=== PATIENT | female | born 1985 | race Two or more races ===

== ENCOUNTER 2025-01-25 14:52 | Emergency (ER) | payer MEDICAID, OTHER ==
[~2025-01-25] VITALS: Ht 162.6 cm; Wt 95.1 kg
--- NOTE | 2025-01-25 15:14 | ECG ---
[facility] Test Date: 2025-01-25 Test Time: 15:07:01 Pat Name: JULIAN BERMUDEZ Department[facility] Patient ID: [id number] Room: Gender: F Brilliandeer Looper: : 1985 Requested By: EVELYN BARNES Order Number: [id number] Reading MD: Terrell Villafuerte Measurements Intervals Maynard Rate: 87 P: 15 VA: 110 QRS: 40 QRSD: 106 T: 26 QT: 377 QTc: 454 Interpretive Statements Sinus rhythm Borderline short VA interval Low voltage, precordial leads Borderline T abnormalities, anterior leads Electronically Signed On 01-27-2025 15:02:52 PST by Terrell Villafuerte Please click the below link to view image of tracing.
[2025-01-25 16:40] LABS: Hematocrit 39.5 % (36.0-46.0); Hemoglobin 13.2 g/dL (12.2-16.2); Mean Corpuscular Hemoglobin 29.2 pg (28.0-32.0); Mean Corpuscular Volume 87.2 fL (80.0-100.0); Nucleated Red Blood Cells % 0.2 %
[2025-01-25] MEDS: SODIUM CHLORIDE 0.9% 1,000 ML IV ONE (16:46)
[2025-01-25 16:47] LABS: Chloride 105 mmol/L (98-107); Potassium 3.9 mmol/L (3.5-5.1); Sodium 141 mmol/L (136-145)
[2025-01-25 16:48] LABS: Anion Gap 8 (5-15); Calcium 9.4 mg/dL (8.7-10.4); Carbon Dioxide 28 mmol/L (20-31)
[2025-01-25 16:50] VITALS: BP 142/60; PULSE 86; RESP 17; TEMP 98.7; O2SAT 99
[2025-01-25 16:53] LABS: BUN/Creatinine Ratio 10.6 (10.0-20.0); Blood Urea Nitrogen 9 mg/dL (9-23); Glucose 106 mg/dL (74-106)
--- NOTE | 2025-01-25 17:16 | ED.PDOC ---
HPI (NEURO) HPI Comments 39 y/o F, with PMHx of hypothyroidism presents to the ED for CC of generalized weakness. Patient states, she has been experiencing symptoms of generalized weakness with associated nausea and bilateral lower extremity tingling x4 days. Patient denies shortness of breath, chest pain, or lower extremity swelling. 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 Hx Family History Family History: Unknown Social History Smoker: Non-Smoker Alcohol: Denies ETOH Use Drugs: Denies Drug Use Lives In: Home Constitutional: reports: fatigue, weakness; denies: chills, diaphoresis, fever, malaise, sweats, others EENTM: denies: blurred vision, double vision, ear bleeding, ear discharge, ear drainage, ear pain, ear ringing, eye pain, eye redness, hearing loss, mouth pain, mouth swelling, nasal discharge, nose bleeding, nose congestion, nose pain, photophobia, tearing, throat pain, throat swelling, voice changes, others Respiratory: denies: cough, hemoptysis, orthopnea, SOB at rest, shortness of breath, SOB with excertion, stridor, wheezing, others Cardiovascular: denies: chest pain, dizzy spells, diaphoresis, Dyspnea on exertion, edema, irregular heart beat, left arm pain, lightheadedness, palpitations, PND, syncope, others Gastrointestinal: reports: nausea; denies: abdomen distended, abdominal pain, blood streaked bowels, constipated, diarrhea, dysphagia, difficulty swallowing, hematemesis, melena, poor appetite, poor fluid intake, rectal bleeding, rectal pain, vomiting, others Genitourinary: denies: abnormal vagina bleeding, burning, dyspareunia, dysuria, flank pain, frequency, hematuria, incontinence, pain, , vagina discharge, urgency, others Neurological: reports: tingling; denies: dizziness, fainting, headache, left sided numbness, left sided weakness, numbness, paresthesia, pre-existing deficit, right sided numbness, right sided weakness, seizure, speech problems, tremors, weakness, others Musculoskeletal: denies: back pain, gout, joint pain, joint swelling, muscle pain, muscle stiffness, neck pain, others Integumetry: denies: bruises, change in color, change in hair/nails, dryness, laceration, lesions, lumps, rash, wounds, others Allergic/Immunocompromised: denies: Difficulty Healing, Frequent Infections, Hives, Itching, others Hematologic/Lymphatic: denies: anemia, blood clots, easy bleeding, easy bruising, swollen glands, others Endocrine: denies: excessive hunger, excessive sweating, excessive thirst, excessive urination, flushing, intolerance to cold, intolerance to heat, unexplained weight gain, unexplained weight loss, others Psychiatric: denies: anxiety, bipolar disorder, depression, hopeless, panic disorder, schizophrenia, sleepless, suicidal, others All Other Systems: Reviewed and Negative Physical Exam General Appearance: Moderate Distress HEENT: Normal ENT Inspection, Pharynx Normal, TMs Normal Neck: Full Range of Motion, Non-Tender, Normal, Normal Inspection Respiratory: Chest Non-Tender, Lungs Clear, No Accessory Muscle Use, No Respiratory Distress, Normal Breath Sounds Cardiovascular: No Edema, No JVD, No Murmur, No Gallop, Normal Peripheral Pulses, Regular Rate/Rhythm Breast Exam: Deferred Gastrointestinal: No Organomegaly, Non Tender, No Pulsatile Mass, Normal Bowel Sounds, Soft Genitalia: Deferred Pelvic: Deferred Rectal: Deferred Extremities: No calf tenderness, Normal capillary refill, Normal inspection, Normal range of motion, Non-tender, No pedal edema Musculoskeletal : Apperance: Normal Neurologic: Alert, spool hauler II-XII nml as Tested, No Motor Deficits, Normal Affect, Normal Mood, No Sensory Deficits Cerebellar Function: Normal Reflexes: Normal Skin: Dry, Normal Color, Warm Peripheral Pulses: 3+ Radial (R), 3+ Radial (L) Lymphatic: No Adenopathy Was a procedure done? Was a procedure done?: No Differential Diagnosis (SZ) Seizure: Psychogenic Seizure, Closed Head Injury, CVA/TIA General Weakness: Dehydration, Hypotension X-Ray, Labs, Meds, VS Vital Signs Date Time Temp Pulse Resp B/P (MAP) Pulse Ox O2 Delivery O2 Flow Rate FiO2 01/25/25 16:50 86 17 99 Room Air 01/25/25 16:50 98.7 86 16 142/60 (87) 99 98.7 01/25/25 15:07 87 01/25/25 14:55 98.9 92 16 157/93 97 98.9 Lab Test 01/25/25 16:24 Range/Units White Blood Count 5.7 4.4-10.8 10^3/uL Red Blood Count 4.53 4.0-5.20 10^6/uL Hemoglobin 13.2 12.2-16.2 g/dL Hematocrit 39.5 36.0-46.0 % Mean Corpuscular Volume 87.2 80.0-100.0 fL Mean Corpuscular Hemoglobin 29.2 28.0-32.0 pg Mean Corpuscular Hemoglobin Concent 33.5 32.0-36.0 g/dL Red Cell Distribution Width 13.5 11.8-14.3 % Platelet Count 313 140-450 10^3/uL Mean Platelet Volume 7.7 6.9-10.8 fL Neutrophils (%) (Auto) 66.4 37.0-80.0 % Lymphocytes (%) (Auto) 25.5 10.0-50.0 % Monocytes (%) (Auto) 6.2 0.0-12.0 % Eosinophils (%) (Auto) 0.8 0.0-7.0 % Basophils (%) (Auto) 1.1 0.0-2.0 % Neutrophils # (Auto) 3.8 1.6-8.6 10 ^3/uL Lymphocytes # (Auto) 1.5 0.4-5.4 10 ^3/uL Monocytes # (Auto) 0.4 0-1.3 10 ^3/uL Eosinophils # (Auto) 0 0-0.8 10 ^3/uL Basophils # (Auto) 0.1 0-0.2 10 ^3/uL Nucleated Red Blood Cells 0.2 % Sodium Level 141 136-145 mmol/L Potassium Level 3.9 3.5-5.1 mmol/L Chloride Level 105 98-107 mmol/L Carbon Dioxide Level 28 20-31 mmol/L Anion Gap 8 5-15 Blood Urea Nitrogen 9 9-23 mg/dL Creatinine 0.85 0.550-1.02 mg/dL Glomerular Filtration Rate Calc 88 >90 mL/min BUN/Creatinine Ratio 10.6 10.0-20.0 Serum Glucose 106 74-106 mg/dL Calcium Level 9.4 8.7-10.4 mg/dL Thyroid Stimulating Hormone (TSH) 3.82 0.55-4.78 uIU/mL Current Medications Medications (Trade) Dose Ordered Sig/Arpit Route Start Time Stop Time Status Last Admin Sodium Chloride 1,000 ml @ 1,000 mls/hr Q1H ONCE IV 01/25/25 16:15 01/25/25 17:14 DC 01/25/25 16:46 Patient alert. Generalized symptoms. Vitals stable. Answering questions. Abdomen is soft nontender. TSH within normal limits. WBC within normal limits. Hemoglobin within normal limits. Establish intravenous access. Was given fluids pain Started feeling better after fluids. Abdomen is soft nontender. No leg swelling. No acute process. Explained to the patient. Was told to follow up with her primary care physician. Was told to come back if there is any problem. Time of 1ST Reevaluation: 17:30 Reevaluation 1ST: Unchanged Patient Education/Counseling: Diagnosis, Treatment Family Education/Counseling: No Family Present Departure 1 Departure Time of Disposition: 17:29 Impression: Primary Impression: Dehydration Additional Impression: Anxiety Disposition: 01 HOME / SELF CARE / HOMELESS Condition: Good Discharged With: Self Critical Care Note Critical Care Time?: No Stability Stability form required: No Heart Score Heart Score: Heart Score Response (Comments) Value History N/A 0 EKG N/A 0 Age N/A 0 Risk Factors N/A 0 Troponin N/A 0 Total 0 I personally scribed for EVELYN BARNES MD ([email or web address]) on 01/25/25 at 17:16. Electronically submitted by Claritza Hawk ([email or web address]). EVELYN BARNES MD Jan 25, 2025 17:16
[2025-01-25 19:07] LABS: Urine Protein, UAD Negative (Negative)
== END 2025-01-25 18:40 | disposition home or self-care (01) ==
LOC: ER 14:52
DX: E86.0 Dehydration (principal); F41.9 Anxiety disorder, unspecified; Z79.899 Other long term (current) drug therapy
CPT/HCPCS: 36415; 80048; 81001; 84443; 85025; 93005; 96360; 99284; J7030